=== PATIENT | male | born 1980 | race Two or more races ===

== ENCOUNTER 2020-04-06 18:42 | Emergency (ER) | payer BC ==
--- NOTE | 2020-04-06 19:15 | EDM.PDOC ---
ED HPI GENERAL MEDICAL PROBLEM - General Chief Complaint: Lower Extremity Injury/Pain Stated Complaint: left leg Time Seen by Provider: 04/06/20 18:54 - History of Present Illness INITIAL COMMENTS - FREE TEXT/NARRATIVE: Patient is an otherwise well 39-year-old male who contracted coronavirus a few weeks ago. He was quite immobile for a period of time but has become more mobile since then. However over the last few days he has noted discomfort in his left calf associated with a palpable lump. It worsens with ambulation and worsens with direct pressure no chest pain no shortness of breath no notable swelling of the lower extremity no prior history of blood clots. The pain does radiate into the left buttock as well. - Related Data Allergies Allergy/AdvReac Type Severity Reaction Status Date / Time No Known Allergies Allergy Verified 04/06/20 18:55 Home Meds: Home Meds . [No Known Home Meds] 04/06/20 [History] Past Medical History - Past Health History Medical/Surgical History: Denies Medical/Surgical History - Infectious Disease History Infectious Disease History: Reports: Chicken Pox, Novel Coronavirus - Past Surgical History HEENT Surgical History: Reports: Tonsillectomy Social & Family History - Family History Family Medical History: Noncontributory - Tobacco Use Smoking Status *Q: Never Smoker - Recreational Drug Use Recreational Drug Use: No Review of Systems - Review of Systems Review Of Systems: See Below Constitutional: Reports: No Symptoms Eyes: Reports: No Symptoms Nose: Reports: No Symptoms Mouth/Throat: Reports: No Symptoms Cardiovascular: Reports: No Symptoms GI/Abdominal: Reports: No Symptoms Musculoskeletal: Reports: Leg Pain Skin: Reports: No Symptoms Neurological: Reports: No Symptoms ED EXAM, GENERAL - Physical Exam Exam: See Below Free Text/Narrative:: General Appearance: No acute distress, appears comfortable Skin: No rash HEENT: Normocephalic/atraumatic, sclera anicteric, mucous membranes moist Neck: Normal range of motion Musculoskeletal: Tender palpable lump in the mid belly of the gastroc in the left leg consistent with severe strain blood clot felt less likely but possible there is no lower extremity swelling there is no sign of collateral circulation Neurologic: Awake, alert, no obvious deficits, moving all extremities Psychiatric: Appropriate, cooperative Course - Vital Signs Last Recorded V/S: Last Vital Signs Temp 96.8 F L 04/06/20 18:51 Pulse 78 10/10/20 18:51 Resp 16 04/06/20 18:51 BP 179/104 H 04/06/20 18:51 Pulse Ox 95 04/06/20 18:51 - Orders/Labs/Meds Labs: Laboratory Tests 04/06/20 Range/Units 19:28 D-Dimer, Quantitative 6.40 H (0.0-0.50) mg/L FEU Departure - Departure Time of Disposition: 20:55 Disposition: Home, Self-Care 01 Condition: Good Clinical Impression: Superficial thrombophlebitis of left leg - Discharge Information *PRESCRIPTION DRUG MONITORING PROGRAM REVIEWED*: Not Applicable *COPY OF PRESCRIPTION DRUG MONITORING REPORT IN PATIENT MARCO: Not Applicable Instructions: Thrombophlebitis Referrals: [facility] [Outside] - 1 Week (If symptoms persist) Forms: ED Department Discharge Additional Instructions: I encourage you to use warm moist heat over the next several days to help your body dissolve the blood clot in your superficial vein. If you develop worsening pain swelling of your lower extremity worsening chest pain or shortness of breath or any other new symptoms that concern you please return to the emergency department. If your symptoms have not resolved by mid week please follow-up with the [facility]. The following information is given to patients seen in the emergency department who are being discharged to home. This information is to outline your options for follow-up care. We provide all patients seen in our emergency department with a follow-up referral. The need for follow-up, as well as the timing and circumstances, are variable depending upon the specifics of your emergency department visit. If you don't have a primary care physician on staff, we will provide you with a referral. We always advise you to contact your personal physician following an emergency department visit to inform them of the circumstance of the visit and for follow-up with them and/or the need for any referrals to a consulting specialist. The emergency department will also refer you to a specialist when appropriate. This referral assures that you have the opportunity for follow-up care with a specialist. All of these measure are taken in an effort to provide you with optimal care, which includes your follow-up. Under all circumstances we always encourage you to contact your private physician who remains a resource for coordinating your care. When calling for follow-up care, please make the office aware that this follow-up is from your recent emergency room visit. If for any reason you are refused follow-up, please contact the [facility] Emergency Department at and asked to speak to the emergency department charge nurse. Sepsis Event Note (ED) - Evaluation Sepsis Screening Result: No Definite Risk - Focused Exam Vital Signs: Vital Signs Temp Pulse Resp BP Pulse Ox 04/06/20 18:51 96.8 F L 78 16 179/104 H 95 - Assessment/Plan Assessment:: 39-year-old male presenting with left calf pain most consistent with muscle strain. However given recent COVID diagnosis DVT also needs to be carefully considered. D-dimer and ultrasound ordered. D-dimer is positive which is not surprising given recent COVID diagnosis ultrasound demonstrates no DVT but does show superficial thrombophlebitis. This is likely the palpable painful area in his mid calf we discussed warm moist heat no indication for blood thinners return precautions discussed and understood.
--- NOTE | 2020-04-06 20:50 | US ---
INDICATION: Left calf pain and lump. TECHNIQUE: Ultrasound venous duplex lower left extremity. Compression venous exam was performed using sal[place]-scale, color Doppler, and spectral Doppler analysis. COMPARISON: None FINDINGS: Sonographic imaging demonstrates the left common femoral, deep femoral, superficial femoral, popliteal, posterior tibial and greater saphenous and the contralateral right common femoral veins to be fully compressible with normal color Doppler blood flow. There is an apparent thrombosed superficial vein in the mid left calf. IMPRESSION: No sign of deep venous thrombosis. Superficial thrombosed vein in the left calf correlating with the lump. Dictated by Petra Sebastian MD @ Apr 06 2020 8:45PM Signed by Dr. Petra Sebastian @ Apr 06 2020 8:48PM
== END 2020-04-06 21:02 | disposition home or self-care (01) ==
LOC: MW.ED 18:42
DX: I80.02 Phlebitis and thrombophlebitis of superficial vessels of left lower extremity (principal)
CPT/HCPCS: 36415; 85379; 93971-26-LT; 93971-LT; 99284-25

== ENCOUNTER 2022-01-17 20:30 | Emergency (ER) | payer BC ==
[2022-01-17 21:53] LABS: CARBON DIOXIDE,CO2 24.1 mmol/L (21.0-32.0)
[2022-01-17] MEDS ORDERED: Rivaroxaban 15 MG Tab PO STA ×2 (22:21)
== END 2022-01-17 22:47 | disposition home or self-care (01) ==
LOC: MW.ED 20:30
DX: M79.89 Other specified soft tissue disorders (principal); Z79.01 Long term (current) use of anticoagulants; Z86.16 Personal history of COVID-19
CPT/HCPCS: 36415; 80048; 85379; 85610; 85730; 99283; A9270